=== PATIENT | female | born 1980 | race African-American/Black ===

== ENCOUNTER 2016-12-30 10:47 | Emergency (ER) | payer BC, MEDICAID ==
[~2016-12-30] VITALS: Ht 172.7 cm; Wt 89.0 kg
[~2016-12-30 10:47] MED LIST: TRAM50 PO
[2016-12-30 10:50] VITALS: BP 182/104; PULSE 79; RESP 17; TEMP 98; O2SAT 98
[2016-12-30] MEDS ORDERED: NITROGLYCERIN 0.4 MG SL 25 TABS/BTL SL ONE (11:15)
[2016-12-30] MEDS ORDERED: ASPIRIN 81 MG CHEW TAB PO ONE (11:15)
[2016-12-30] MEDS ORDERED: PROCHLORPERAZINE INJ 10 MG/2 ML VIAL IV PUSH ONE (11:15)
[2016-12-30] MEDS ORDERED: MORPHINE SULFATE 4 MG/ML INJ IV PUSH ONE (11:15)
[2016-12-30] MEDS ORDERED: SODIUM CHLORIDE 0.9% FLUSH 10 ML FLUSH IVF PRN (11:15)
[2016-12-30] MEDS ORDERED: diphenhydrAMINE HCL 50 MG/ML VIAL IV PUSH ONE (11:15)
[2016-12-30] MEDS ORDERED: SODIUM CHLORID 0.9% 500 ML INJ 500 ML IV ONE (11:15)
--- NOTE | 2016-12-30 11:19 | PD ---
HPI Chief Complaint: Chest Pain Time Seen by Provider: 10:55 Travel History International Travel<30 days: No Contact w/Intl Traveler<30days: No Traveled to known affect area: No History of Present Illness HPI The patient is a 36-year-old [place] female who presents emergency department for headache and chest pain. The patient has a history of migraines with previous workup performed in [facility]. The patient developed a migraine 4 days ago which is located over the right aspect of her head and is associated with mild photophobia, blurry vision, phonophobia, nausea, without any vomiting. Earlier today the patient developed substernal chest pain described as heaviness and pressure, nonradiating, CO2 mild shortness of breath. The patient denies any diaphoresis or radiation of the pain. The patient denies any history of hypertension, hyperlipidemia, tobacco use, diabetes, CAD, early significant family medical history for chest pain. She denies any recent exertional shortness of breath. Symptoms are moderate without any alleviating or exacerbating factors. PFSH Past Medical History ?: Not LMP: 12/30/16 Social History Alcohol Use: No Tobacco Use: No Substance Use: No Allergies-Medications (Allergen,Severity, Reaction): Coded Allergies: No Known Allergies (Unverified , 12/30/16) Reported Meds & Prescriptions Reported Meds & Active Scripts Active No Active Prescriptions or Reported Medications Review of Systems Except as stated in HPI: all other systems reviewed are Neg General / Constitutional: No: Fever HENT: Positive: Headaches Cardiovascular: Positive: Chest Pain or Discomfort, No: Diaphoresis Respiratory: Positive: Shortness of Breath Gastrointestinal: Positive: Nausea, No: Vomiting, Abdominal Pain Neurologic: Positive: Headache, No: Change in Mentation Physical Exam Narrative GENERAL: Awake, alert, pleasant 36-year-old female who appears her stated age and is in no acute respiratory distress. SKIN: Focused skin assessment warm/dry. HEAD: Atraumatic. Normocephalic. EYES: Pupils equal and round. 4 mm bilateral and reactive. ENT: No nasal bleeding or discharge. Mucous membranes pink and moist. NECK: Trachea midline. No JVD. CARDIOVASCULAR: Regular rate and rhythm. No murmur appreciated. Palpation the chest wall does not reproduce symptoms. RESPIRATORY: No accessory muscle use. Clear to auscultation. Breath sounds equal bilaterally. GASTROINTESTINAL: Abdomen soft, non-tender, nondistended. No rebound tenderness. MUSCULOSKELETAL: No obvious deformities. No clubbing. No cyanosis. No edema. NEUROLOGICAL: Awake and alert. No obvious cranial nerve deficits. Motor grossly within normal limits. Normal speech. Nonfocal. Oriented 4. Follows commands without difficulty. PSYCHIATRIC: Appropriate mood and affect; insight and judgment normal. Data Data Last Documented VS Vital Signs Date Time Temp Pulse Resp B/P Pulse Ox O2 Delivery O2 Flow Rate FiO2 12/30/16 11:40 57 15 170/106 98 Room Air 12/30/16 10:50 98.0 Orders Electrocardiogram (12/30/16 11:08) Ckmb (Isoenzyme) Profile (12/30/16 11:08) Complete Blood Count With Diff (12/30/16 11:08) Comprehensive Metabolic Panel (12/30/16 11:08) Magnesium (Mg) (12/30/16 11:08) Prothrombin Time / Inr (Pt) (12/30/16 11:08) Act Partial Throm Time (Ptt) (12/30/16 11:08) Troponin I (12/30/16 11:08) Chest, Single Ap (12/30/16 11:08) Ecg Monitoring (12/30/16 11:08) Bilateral Bp Monitoring (12/30/16 11:08) Iv Access Insert/Monitor (12/30/16 11:08) Oximetry (12/30/16 11:08) Oxygen Administration (12/30/16 11:08) Aspirin Chew (Aspirin Chew) (12/30/16 11:15) Morphine Inj (Morphine Inj) (12/30/16 11:15) Sodium Chloride 0.9% Flush (Ns Flush) (12/30/16 11:15) Nitroglycerin Sl (Nitrostat Sl) (12/30/16 11:15) Sodium Chlorid 0.9% 500 Ml Inj (Ns 500 M (12/30/16 11:15) Prochlorperazine Inj (Compazine Inj) (12/30/16 11:15) Diphenhydramine Inj (Benadryl Inj) (12/30/16 11:15) CKMB (12/30/16 11:15) CKMB% (12/30/16 11:15) Labs Laboratory Tests Test 12/30/16 11:15 White Blood Count 7.7 TH/MM3 Red Blood Count 4.94 MIL/MM3 Hemoglobin 13.5 GM/DL Hematocrit 41.6 % Mean Corpuscular Volume 84.4 FL Mean Corpuscular Hemoglobin 27.5 PG Mean Corpuscular Hemoglobin 32.5 % Concent Red Cell Distribution Width 12.6 % Platelet Count 276 TH/MM3 Mean Platelet Volume 8.1 FL Neutrophils (%) (Auto) 64.1 % Lymphocytes (%) (Auto) 29.1 % Monocytes (%) (Auto) 5.4 % Eosinophils (%) (Auto) 1.1 % Basophils (%) (Auto) 0.3 % Neutrophils # (Auto) 4.9 TH/MM3 Lymphocytes # (Auto) 2.2 TH/MM3 Monocytes # (Auto) 0.4 TH/MM3 Eosinophils # (Auto) 0.1 TH/MM3 Basophils # (Auto) 0.0 TH/MM3 CBC Comment DIFF FINAL Differential Comment Prothrombin Time 10.9 SEC Prothromb Time International 1.0 RATIO Ratio Activated Partial 27.8 SEC Thromboplast Time Sodium Level 141 MEQ/L Potassium Level 3.4 MEQ/L Chloride Level 109 MEQ/L Carbon Dioxide Level 23.6 MEQ/L Anion Gap 8 MEQ/L Blood Urea Nitrogen 5 MG/DL Creatinine 0.65 MG/DL Estimat Glomerular Filtration 124 ML/MIN Rate Random Glucose 87 MG/DL Calcium Level 8.4 MG/DL Magnesium Level 2.0 MG/DL Total Bilirubin 0.4 MG/DL Aspartate Amino Transf 21 U/L (AST/SGOT) Alanine Aminotransferase 32 U/L (ALT/SGPT) Alkaline Phosphatase 90 U/L Total Creatine Kinase 170 U/L Creatine Kinase MB 0.7 NG/ML Troponin I LESS THAN 0.02 NG/ML Total Protein 7.8 GM/DL Albumin 4.0 GM/DL MDM Medical Decision Making Medical Screen Exam Complete: Yes Emergency Medical Condition: Yes Medical Record Reviewed: Yes Interpretation(s) EKG reveals normal sinus rhythm with a rate of 65. No ischemic changes noted. Laboratory Tests Test 12/30/16 11:15 White Blood Count 7.7 TH/MM3 Red Blood Count 4.94 MIL/MM3 Hemoglobin 13.5 GM/DL Hematocrit 41.6 % Mean Corpuscular Volume 84.4 FL Mean Corpuscular Hemoglobin 27.5 PG Mean Corpuscular Hemoglobin 32.5 % Concent Red Cell Distribution Width 12.6 % Platelet Count 276 TH/MM3 Mean Platelet Volume 8.1 FL Neutrophils (%) (Auto) 64.1 % Lymphocytes (%) (Auto) 29.1 % Monocytes (%) (Auto) 5.4 % Eosinophils (%) (Auto) 1.1 % Basophils (%) (Auto) 0.3 % Neutrophils # (Auto) 4.9 TH/MM3 Lymphocytes # (Auto) 2.2 TH/MM3 Monocytes # (Auto) 0.4 TH/MM3 Eosinophils # (Auto) 0.1 TH/MM3 Basophils # (Auto) 0.0 TH/MM3 CBC Comment DIFF FINAL Differential Comment Prothrombin Time 10.9 SEC Prothromb Time International 1.0 RATIO Ratio Activated Partial 27.8 SEC Thromboplast Time Sodium Level 141 MEQ/L Potassium Level 3.4 MEQ/L Chloride Level 109 MEQ/L Carbon Dioxide Level 23.6 MEQ/L Anion Gap 8 MEQ/L Blood Urea Nitrogen 5 MG/DL Creatinine 0.65 MG/DL Estimat Glomerular Filtration 124 ML/MIN Rate Random Glucose 87 MG/DL Calcium Level 8.4 MG/DL Magnesium Level 2.0 MG/DL Total Bilirubin 0.4 MG/DL Aspartate Amino Transf 21 U/L (AST/SGOT) Alanine Aminotransferase 32 U/L (ALT/SGPT) Alkaline Phosphatase 90 U/L Total Creatine Kinase 170 U/L Creatine Kinase MB 0.7 NG/ML Troponin I LESS THAN 0.02 NG/ML Total Protein 7.8 GM/DL Albumin 4.0 GM/DL Last Impressions Chest X-Ray 12/30/16 1108 Signed Impressions: Service Date/Time: Friday, December 30, 2016 11:05 - CONCLUSION: No acute disease. Jude Murillo MD FACR Differential Diagnosis Differential diagnosis includes migraine, tension headache, glaucoma, acute coronary syndrome, GERD, esophageal spasm, somatization, pulmonary embolism, gastritis, peptic ulcer disease, pancreatitis. Narrative Course IV was established, labs are drawn and sent, and the patient was placed on cardiac telemetry monitoring and continuous pulse oximetry monitoring. EKG was ordered and interpreted. The patient was administered aspirin, morphine, Compazine, Benadryl, and IV fluids. Chest x-ray was obtained. Chest x-rays unremarkable. The patient's initial troponin is negative. The patient has atypical symptoms with no obvious risk factors. The patient was reevaluated at 12:55 PM, her headache has resolved and so has her chest pain. The patient has no risk factors atypical symptoms that started after the headache, may be secondary to elevated blood pressure migraine. The patient will be discharged home when she has a safe ride and disposition home. Diagnosis Primary Impression: Migraine Qualified Code: G43.909 - Migraine without status migrainosus, not intractable , unspecified migraine type Additional Impression: Atypical chest pain Patient Instructions: General Instructions Additional Instructions: Follow-up with your primary physician. Return if symptoms worsen or progress. No driving for 6 hours. Med/Other Pt SpecificInfo: Prescription(s) given Scripts Patoasatyx-Rrohqcsqeoadg-Emquozoj (Fioricet)50-300-40 Mg Cap1 Cap PO Q4H PRN ( HEADACHE) #12 CAP Ref 0 Prov:Zaheer Vaughn MD 12/30/16 Disposition: 01 DISCHARGE HOME Condition: Stable Zaheer Vaughn MD December 30, 2016 11:19
--- NOTE | 2016-12-30 11:23 | RADRPT ---
EXAM DATE/TIME: 12/30/2016 11:05 [facility] COMPARISON: No previous studies available for comparison. INDICATIONS : Patient states chest pains. MEDICAL HISTORY : None. SURGICAL HISTORY : None. ENCOUNTER: Initial ACUITY: 1 day PAIN SCORE: 4/10 LOCATION: Bilateral chest FINDINGS: A single view of the chest demonstrates the lungs to be symmetrically aerated without evidence of mas s, infiltrate or effusion. The cardiomediastinal contours are unremarkable. Osseous structures are intact. CONCLUSION: No acute disease. Jude Murillo MD FACR on December 30, 2016 at 11:21 Board Certified Radiologist. This report was verified electronically.
[2016-12-30 11:33] VITALS: O2SAT 100
[2016-12-30 11:36] LABS: AUTOMATED NEUTROPHIL # 4.9 TH/MM3 (1.8-7.7); BASOPHIL % 0.3 % (0.0-2.0); EOSINOPHIL # 0.1 TH/MM3 (0-0.4); EOSINOPHIL % 1.1 % (0.0-4.0); HEMATOCRIT 41.6 % (35.0-46.0); HEMO FLAGS DIFF FINAL; LYMPH % 29.1 % (9.0-44.0); LYMPHOCYTE # 2.2 TH/MM3 (1.0-4.8); MEAN CELL VOLUME 84.4 FL (80.0-100.0); MEAN CORPUSCULAR HEMOGLOBIN 27.5 PG (27.0-34.0); MEAN CORPUSCULAR HGB CONC 32.5 % (32.0-36.0); MONO % 5.4 % (0.0-8.0); NEUT % 64.1 % (16.0-70.0); PLATELET COUNT 276 TH/MM3 (150-450); RED BLOOD COUNT 4.94 MIL/MM3 (4.00-5.30); RED CELL DISTRIBUTION WIDTH 12.6 % (11.6-17.2); WHITE BLOOD COUNT 7.7 TH/MM3 (4.0-11.0)
[2016-12-30 11:40] VITALS: BP 170/106; PULSE 57; RESP 15; O2SAT 98
[2016-12-30 11:49] LABS: APTT (PATIENT) 27.8 SEC (24.3-30.1); PROTHROMBIN TIME - PATIENT 10.9 SEC (9.8-11.6)
[2016-12-30 11:58] LABS: ALT (GPT) 32 U/L (10-53); ANION GAP 8 MEQ/L (5-15); AST (GOT) 21 U/L (15-37); BICARBONATE 23.6 MEQ/L (21.0-32.0); BLOOD UREA NITROGEN 5 MG/DL (7-18); CHLORIDE 109 MEQ/L (98-107); GLOMERULAR FILTRATION RATE 124 ML/MIN (>89); POTASSIUM 3.4 MEQ/L (3.5-5.1); SODIUM (NA) 141 MEQ/L (136-145)
[2016-12-30 12:02] LABS: ALKALINE PHOSPHATASE 90 U/L (45-117); CREATINE KINASE 170 U/L (26-192); TOTAL BILIRUBIN ADULT 0.4 MG/DL (0.2-1.0)
[2016-12-30 12:15] LABS: CKMB 0.7 NG/ML (0.5-3.6)
[2016-12-30] MEDS ORDERED: BUTA1CAP PO (12:58)
--- NOTE | 2016-12-31 15:24 | EKG ---
Date Performed: 12/30/2016 Time Performed: 11:02:52 PTAGE: 36 years EKG: Sinus rhythm MINIMAL VOLTAGE CRITERIA FOR LVH, CONSIDER NORMAL VARIANT BORDERLINE ECG NO PREVIOUS TRACING DOCTOR: Mary Da Silva Interpretating Date/Time 12/31/2016 15:23:06
== END 2016-12-30 13:51 | disposition home or self-care (01) ==
LOC: NEPE 10:47
DX: G43.909 Migraine, unspecified, not intractable, without status migrainosus (principal); R07.89 Other chest pain; R94.31 Abnormal electrocardiogram [ECG] [EKG]
CPT/HCPCS: 71010; 80053; 82550; 82552; 83735; 84484; 85025; 85610; 85730; 93005; 96361; 96374; 96375; 99285; J0780; J1200; J2270; J7040

== ENCOUNTER 2017-12-10 20:22 | Emergency (ER) | payer MEDICAID ==
[~2017-12-10] VITALS: Ht 172.7 cm; Wt 97.5 kg
[~2017-12-10 20:22] MED LIST changes: +BUTA1CAP PO; -TRAM50 PO
[2017-12-10 21:10] VITALS: BP 176/84; PULSE 79; RESP 18; TEMP 98.9; O2SAT 99
[2017-12-10] MEDS ORDERED: diphenhydrAMINE HCL 50 MG/ML VIAL IV PUSH ONE (22:30)
[2017-12-10] MEDS ORDERED: KETOROLAC TROMETHAMINE 30 MG/ML (IVP) VIAL IV PUSH ONE (22:30)
[2017-12-10] MEDS ORDERED: PROCHLORPERAZINE INJ 10 MG/2 ML VIAL IV PUSH ONE (22:30)
--- NOTE | 2017-12-10 22:38 | PD ---
HPI Chief Complaint: Headache Time Seen by Provider: 22:25 Travel History International Travel<30 days: No Contact w/Intl Traveler<30days: No Traveled to known affect area: No History of Present Illness HPI 37-year-old black female presents emergency department with months of migraine headache. She states that this is a typical migraine headache for her. Started off on the right side of her head but now is all across her forehead. Started yesterday gradual onset. Sharp and throbbing in nature. Associated nausea, photophobia and general malaise. She has taken [id number]-[id number] medications without relief. She denies any recent illness. No fever chills. No numbness, tingling or weakness. No neck or back pain. Exacerbated by movement and lites. No alleviating factors. She states the pain is moderate. Patient has had a workup in the past. She was treated earlier this past year for migraine headache in the ER. PFSH Past Medical History Narrative Medical Migraines Headaches: Yes Tetanus Vaccination: < 5 Years ?: Not LMP: 11/27/2017 Past Surgical History Narrative Surgical C-sections Gynecologic Surgery: Yes () Social History Alcohol Use: No Tobacco Use: No Substance Use: No Allergies-Medications (Allergen,Severity, Reaction): Coded Allergies: No Known Allergies (Unverified Adverse Reaction, Unknown, 12/10/17) Reported Meds & Prescriptions Reported Meds & Active Scripts Active Review of Systems General / Constitutional: No: Fever Eyes: Positive: Photophobia, No: Diploplia, Blurred Vision, Redness, Visual changes HENT: Positive: Headaches Cardiovascular: No: Chest Pain or Discomfort Respiratory: No: Shortness of Breath Gastrointestinal: Positive: Nausea, Vomiting, No: Abdominal Pain Genitourinary: No: Dysuria Musculoskeletal: No: Pain Skin: No Rash Neurologic: Positive: Headache, No: Weakness, Dizziness, Syncope, Focal Abnormalities, Change in Mentation, Slurred Speech, Paresthesia, Incontinence Psychiatric: No: Depression Endocrine: No: Polydipsia Hematologic/Lymphatic: No: Easy Bruising Physical Exam Narrative GENERAL: Well-developed, well-nourished in no apparent distress. Nontoxic appearing. HEAD: Normocephalic, atraumatic. EYES: Pupils equal round and reactive. Extraocular motions intact. No scleral icterus. No injection or drainage. ENT: Nose clear. Throat without erythema, tonsillar hypertrophy or exudate. Uvula midline. Airway patent. NECK: Trachea midline. Supple, nontender, moves head freely. No central bony tenderness or spasm. CARDIOVASCULAR: Regular rate and rhythm without murmurs, gallops, or rubs. RESPIRATORY: Clear to auscultation. Breath sounds equal bilaterally. No wheezes , rales, or rhonchi. GASTROINTESTINAL: Abdomen soft, non-tender, nondistended. No hepato-splenomegaly , or palpable masses. No guarding. EXTREMITIES: No clubbing, cyanosis, or edema. No joint tenderness. BACK: Nontender without deformity. No flank tenderness. NEUROLOGICAL: Awake, alert and oriented x 3 .Cranial nerves grossly intact. Motor and sensory grossly within normal limits. Normal speech. Data Data Last Documented VS Vital Signs Date Time Temp Pulse Resp B/P (MAP) Pulse Ox O2 Delivery O2 Flow Rate FiO2 12/10/17 21:10 98.9 79 18 176/84 (114) 99 Orders Orders Iv Access Insert/Monitor (12/10/17 22:29) Diphenhydramine Inj (Benadryl Inj) (12/10/17 22:30) Prochlorperazine Inj (Compazine Inj) (12/10/17 22:30) Ketorolac Inj (Toradol Inj) (12/10/17 22:30) MDM Medical Decision Making Medical Screen Exam Complete: Yes Emergency Medical Condition: Yes Medical Record Reviewed: Yes Differential Diagnosis MDM: High Differential diagnoses: Subarachnoid hemorrhage, intracranial bleed, aneurysm, pseudotumor, migraine, cluster headache, atypical migraine, temporal arteritis, connective tissue disorder, hypertension, temporal arteritis, sinusitis, sinus headache,malingering Narrative Course IV access is obtained. Patient was given 50 mg of Benadryl IV, Compazine 10 mg IV, and 50 mg of Toradol IV. The patient is reexamined. She is sleeping examination room. She is awoken. She states her headache is completely resolved. Patient is medically stable for discharge. This is migraine headache Diagnosis Primary Impression: Migraine headache Patient Instructions: General Instructions Departure Forms: Tests/Procedures, Work Release Special Instructions: No work 12/11/17 Additional Instructions: Rest. Sleep. Increase fluids. Follow-up with your doctor in next 3-5 days for recheck. Return to the ER if any problems. Med/Other Pt SpecificInfo: No Meds Exist/No RX given Disposition: 01 DISCHARGE HOME Condition: Stable Paul Min Dec 10, 2017 22:38
== END 2017-12-10 23:54 | disposition home or self-care (01) ==
LOC: NEPD 20:22
DX: G43.909 Migraine, unspecified, not intractable, without status migrainosus (principal)
CPT/HCPCS: 96374; 96375; 99284; J0780; J1200; J1885

== ENCOUNTER 2018-04-20 19:37 | Observation (INO) ==
[2018-04-20] MEDS ORDERED: Acetaminophen 325 MG Tablet PO ONE (20:23)
[2018-04-20] MEDS ORDERED: Sod Chloride 0.9% Inj 1,000 ML IV.SIG ONE (20:23)
[2018-04-20 20:58] LABS: Albumin 3.9 g/dL (3.4-5.0); Anion Gap 10 meq/L (5-15); Aspartate Aminotransferase 41 U/L (15-37); Blood Urea Nitrogen 6 mg/dL (7-18); Calcium 8.1 mg/dL (8.5-10.1); Carbon Dioxide 24.1 meq/L (21.0-32.0); Chloride 105 meq/L (98-107); Glomerular Filtration Rate 87 mL/min (>89); Glucose,Random 87 mg/dL (74-106); Lipase 111 U/L (73-393); Magnesium 1.9 mg/dL (1.5-2.5); Potassium 3.2 meq/L (3.5-5.1); Sodium 139 meq/L (136-145)
[2018-04-20 20:59] LABS: Alanine Aminotransferase 66 U/L (10-53); Baso % (Auto) 0.4 % (0.0-2.0); Eos # (Auto) 0.1 th/mm3 (0.0-0.4); Eos % (Auto) 1.7 % (0.0-4.0); Hematocrit 38.7 % (35.0-46.0); Hemoglobin 13.3 gm/dL (11.6-15.3); Lymph # (Auto) 1.8 th/mm3 (1.0-4.8); Lymph % (Auto) 32.2 % (9.0-44.0); Mean Corpuscular HGB Conc 34.3 % (32.0-36.0); Mean Corpuscular Hemoglobin 28.4 pg (27.0-34.0); Mean Corpuscular Volume 82.7 fL (80.0-100.0); Mean Platelet Volume 7.8 fL (7.0-11.0); Mono # (Auto) 0.5 th/mm3 (0.0-0.9); Mono % (Auto) 9.4 % (0.0-8.0); Neut # (Auto) 3.2 th/mm3 (1.8-7.7); Neut % (Auto) 56.3 % (16.0-70.0); Platelet Count 198 th/mm3 (150-450); Red Blood Count 4.68 mil/mm3 (4.00-5.30); Red Cell Distribution Width 13.4 % (11.6-17.2); White Blood Count 5.7 th/mm3 (4.0-11.0)
--- NOTE | 2018-04-20 21:01 | ED ---
[facility] General Chief complaint: Chest Pain Stated complaint: Chest pain Time Seen by Provider: 04/20/18 20:18 Source: patient Limitations: no limitations History of Present Illness HPI narrative: The patient is a 37 year old female who presents to the [facility] emergency department with a history of chest pain that she reports began prior to arrival when she was walking from her car into her house. She reports that it lasted for approximately 20 minutes. She reports the pain was initially sharp in character. She reports that now that the pain has recurred it is a pressure sensation in the center of her chest. She reports having associated shortness of breath. She denies having any nausea or vomiting. She denies having any radiation of the pain. She reports that initially she did have tingling sensations in her hands and feet that have resolved. She denies having any diaphoresis. She denies having any known recent fevers, however on arrival her temperature is noted to be 102.7. She denies having any recent cough or congestion. She denies having any dysuria, hematuria, urinary urgency , or frequency. She denies having any rashes or sore throat. She denies having any joint swelling or redness. Otherwise on review of systems,the patient denies having any neck pain,abdominal pain, diarrhea, or neurologic symptoms. Related Data Home Medications Medication Instructions Recorded Confirmed No Known Home Medications 04/21/18 04/21/18 Allergies Allergy/AdvReac Type Severity Reaction Status Date / Time No Known Allergies AdvReac Unknown Uncoded 12/10/17 22:29 Review of Systems ROS: all other systems reviewed are negative (Except for that which was mentioned in the HPI) [facility], [facility] Medical History Medical History Hypertension (Acute) Social History Social History Substance History: No History of Abuse Second Hand Smoke Exposure: No Smoking Status: Never smoker How Often Do You Have a Drink Containing Alcohol: Never Recent Travel in [facility] within the Last 8 Weeks: No Recent Out of Country Travel within the Last 8 Weeks: No Immunization History Tetanus Immunization: Unsure Hx Influenza Vaccine This Season: No Exam Const General: cooperative, no acute distress and well developed Nutritional Appearance: well nourished Orientation: alert, awake and oriented x3 HENMT Head: normocephalic and atraumatic Nose: no nasal discharge and no epistaxis Mouth: moist mucous membranes Throat: posterior oropharynx normal and uvula midline Eyes Sclera: normal sclerae Pupils: PERRL Neck Neck: no meningeal signs, trachea midline and no JVD Resp Effort & Inspection: no use of accessory muscles Auscultation: clear to auscultation bilaterally Cardio Rate: regular rate Rhythm: regular rhythm Heart Sounds: no murmurs GI Inspection: non-distended Palpation: soft, no hepatosplenomegaly and nontender Auscultation: normal bowel sounds Back/Spine/Pelvis Back: no CVA tenderness Skin General: dry skin (warm) Neuro General: alert, awake and oriented x3 Cranial Nerves: other (Grossly non-focal. No facial assymetry.) Speech: speech normal Motor: no movement abnormalities noted Extrem General: normal to inspection (No calf tenderness on palpation. 2+ pulses in all 4 extremities.), no clubbing, no cyanosis and no edema Psych Mood: congruent mood Affect: normal affect Judgment: judgment good Course Initial Documented Vital Signs Temperature 102.7 F H 04/20/18 20:09 Pulse Rate 83 04/20/18 20:09 Respiratory Rate 16 04/20/18 20:09 Blood Pressure 138/79 04/20/18 20:09 Pulse Oximetry 98 04/20/18 20:09 Last Documented Vital Signs Temperature 99.1 F 04/21/18 12:00 Pulse Rate 64 04/21/18 12:00 Respiratory Rate 16 04/21/18 12:00 Blood Pressure 132/86 04/21/18 12:00 Pulse Oximetry 98 04/21/18 12:00 Medical Decision Making MDM Narrative Medical decision making narrative: During the course of the patient's emergency department visit, the patient's history, examination, and differential diagnosis were reviewed with the patient. 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 The patient had IV access obtained and blood work sent for analysis. Diagnostic evaluation was started regarding the patient's chest pain The patient's diagnostic evaluation is remarkable for a white count of 8.5, neutrophil percent is within normal limits at 56.3, monocytosis at 9.4 suggestive of a viral illness, hemoglobin 13.3, PT 11.2, PTT 26.8, d-dimer is elevated at 1.37, CTA to rule out PE has been ordered. Chemistry is remarkable for a troponin I of less than 0.02, potassium 3.2 which will be supplemented orally, GFR of 87, calcium 8.1,BUN 6, AST 41, alk phos 131, ALT 66 urinalysis shows few mucus otherwise unremarkable. The patient's chest x-ray showed no acute cardiopulmonary disease, CTA showed no pulmonary embolus or other acute abnormality. The patient's results were discussed with the patient, including the plan of care. I explained that further testing and/ or monitoring is indicated based on the patient's history, examination, and/ or laboratory findings. Therefore, I recommended admission for additional evaluation. The patient expressed understanding and was agreeable with this plan. The patient was admitted to the hospital in stable condition and sent to a bed under the care of the [facility]. Medical Screen Exam Complete: Yes Emergency Medical Condition: Yes Differential Diagnosis Differential Diagnosis: Acute coronary syndrome, versus pulmonary embolism, versus pneumonia, versus pneumothorax Medical Records Medical records reviewed: Yes I reviewed the patient's medical records. Lab Data Lab results reviewed: Yes I reviewed the patient's lab results. Result diagrams: 04/20/18 20:30 04/20/18 20:30 POC Results POC Urine Results Negative Lab Results 04/20/18 04/20/18 04/20/18 Range/Units 20:30 20:30 20:30 WBC 5.7 (4.0-11.0) th/mm3 RBC 4.68 (4.00-5.30) mil/mm3 Hgb 13.3 (11.6-15.3) gm/dL Hct 38.7 (35.0-46.0) % MCV 82.7 (80.0-100.0) fL MCH 28.4 (27.0-34.0) pg MCHC 34.3 (32.0-36.0) % RDW 13.4 (11.6-17.2) % Plt Count 198 (150-450) th/mm3 MPV 7.8 (7.0-11.0) fL Neut % (Auto) 56.3 (16.0-70.0) % Lymph % (Auto) 32.2 (9.0-44.0) % Lewis % (Auto) 9.4 H (0.0-8.0) % Eos % (Auto) 1.7 (0.0-4.0) % Baso % (Auto) 0.4 (0.0-2.0) % Neut # (Auto) 3.2 (1.8-7.7) th/mm3 Lymph # (Auto) 1.8 (1.0-4.8) th/mm3 Lewis # (Auto) 0.5 (0.0-0.9) th/mm3 Eos # (Auto) 0.1 (0.0-0.4) th/mm3 Baso # (Auto) 0.0 (0.0-0.2) th/mm3 WBC Differential . Differential Comment Auto diff final PT 11.2 (9.8-11.6) sec INR 1.1 Ratio APTT 26.8 (24.3-30.1) sec D-Dimer Quant (PE/DVT) 1.37 H (0.00-0.50) mg/L FEU Sodium 139 (136-145) meq/L Potassium 3.2 L (3.5-5.1) meq/L Chloride 105 (98-107) meq/L Carbon Dioxide 24.1 (21.0-32.0) meq/L Anion Gap 10 (5-15) meq/L BUN 6 L (7-18) mg/dL Creatinine 0.88 (0.50-1.00) mg/dL Estimated GFR 87 L (>89) mL/min Random Glucose 87 (74-106) mg/dL Lactic Acid (0.4-2.0) mmol/L Calcium 8.1 L (8.5-10.1) mg/dL Magnesium 1.9 (1.5-2.5) mg/dL Total Bilirubin 0.4 (0.2-1.0) mg/dL AST 41 H (15-37) U/L ALT 66 H (10-53) U/L Alkaline Phosphatase 131 H (45-117) U/L Total Creatine Kinase 151 (26-192) U/L CK-MB (CK-2) Less than 1.0 (0.5-3.6) ng/mL Troponin I Less than 0.02 L (0.02-0.05) ng/mL Total Protein 8.2 (6.4-8.2) g/dL Albumin 3.9 (3.4-5.0) g/dL Lipase 111 (73-393) U/L Urine Color (Yellw/Straw) Urine Clarity (Clear) Urine pH (5.0-8.5) Ur Specific [place] (1.002-1.035) Urine Protein (Neg-Trace) mg/dL Urine Glucose (UA) (Negative) mg/dL Urine Ketones (Negative) mg/dL Urine Occult Blood (Negative) Urine Nitrate (Negative) Urine Bilirubin (Negative) Urine Urobilinogen (Less than 2) mg/dL Ur Leukocyte Esterase (Negative) Urine RBC (0-3) /hpf Urine WBC (0-5) /hpf Ur Squamous Epith Cells (0-5) /hpf Urine Mucus (Occasional) /lpf Micro UA Comment Ur Microscopic Review Urine Culture Comments 04/20/18 04/20/18 04/20/18 Range/Units 20:30 20:30 21:35 WBC (4.0-11.0) th/mm3 RBC (4.00-5.30) mil/mm3 Hgb (11.6-15.3) gm/dL Hct (35.0-46.0) % MCV (80.0-100.0) fL MCH (27.0-34.0) pg MCHC (32.0-36.0) % RDW (11.6-17.2) % Plt Count (150-450) th/mm3 MPV (7.0-11.0) fL Neut % (Auto) (16.0-70.0) % Lymph % (Auto) (9.0-44.0) % Lewis % (Auto) (0.0-8.0) % Eos % (Auto) (0.0-4.0) % Baso % (Auto) (0.0-2.0) % Neut # (Auto) (1.8-7.7) th/mm3 Lymph # (Auto) (1.0-4.8) th/mm3 Lewis # (Auto) (0.0-0.9) th/mm3 Eos # (Auto) (0.0-0.4) th/mm3 Baso # (Auto) (0.0-0.2) th/mm3 WBC Differential Differential Comment PT (9.8-11.6) sec INR Ratio APTT (24.3-30.1) sec D-Dimer Quant (PE/DVT) Cancelled (0.00-0.50) mg/L FEU Sodium (136-145) meq/L Potassium (3.5-5.1) meq/L Chloride (98-107) meq/L Carbon Dioxide (21.0-32.0) meq/L Anion Gap (5-15) meq/L BUN (7-18) mg/dL Creatinine (0.50-1.00) mg/dL Estimated GFR (>89) mL/min Random Glucose (74-106) mg/dL Lactic Acid 0.9 (0.4-2.0) mmol/L Calcium (8.5-10.1) mg/dL Magnesium (1.5-2.5) mg/dL Total Bilirubin (0.2-1.0) mg/dL AST (15-37) U/L ALT (10-53) U/L Alkaline Phosphatase (45-117) U/L Total Creatine Kinase (26-192) U/L CK-MB (CK-2) (0.5-3.6) ng/mL Troponin I (0.02-0.05) ng/mL Total Protein (6.4-8.2) g/dL Albumin (3.4-5.0) g/dL Lipase (73-393) U/L Urine Color Yellow (Yellw/Straw) Urine Clarity Clear (Clear) Urine pH 5.0 (5.0-8.5) Ur Specific [place] 1.010 (1.002-1.035) Urine Protein Negative (Neg-Trace) mg/dL Urine Glucose (UA) Negative (Negative) mg/dL Urine Ketones Negative (Negative) mg/dL Urine Occult Blood Negative (Negative) Urine Nitrate Negative (Negative) Urine Bilirubin Negative (Negative) Urine Urobilinogen Less than 2 (Less than 2) mg/dL Ur Leukocyte Esterase Negative (Negative) Urine RBC 1 (0-3) /hpf Urine WBC Less than 1 (0-5) /hpf Ur Squamous Epith Cells <1 (0-5) /hpf Urine Mucus Few H (Occasional) /lpf Micro UA Comment Culture not ind Ur Microscopic Review Not Reportable Urine Culture Comments Culture not ind 04/20/18 04/21/18 Range/Units 23:43 03:05 WBC (4.0-11.0) th/mm3 RBC (4.00-5.30) mil/mm3 Hgb (11.6-15.3) gm/dL Hct (35.0-46.0) % MCV (80.0-100.0) fL MCH (27.0-34.0) pg MCHC (32.0-36.0) % RDW (11.6-17.2) % Plt Count (150-450) th/mm3 MPV (7.0-11.0) fL Neut % (Auto) (16.0-70.0) % Lymph % (Auto) (9.0-44.0) % Lewis % (Auto) (0.0-8.0) % Eos % (Auto) (0.0-4.0) % Baso % (Auto) (0.0-2.0) % Neut # (Auto) (1.8-7.7) th/mm3 Lymph # (Auto) (1.0-4.8) th/mm3 Lewis # (Auto) (0.0-0.9) th/mm3 Eos # (Auto) (0.0-0.4) th/mm3 Baso # (Auto) (0.0-0.2) th/mm3 WBC Differential Differential Comment PT (9.8-11.6) sec INR Ratio APTT (24.3-30.1) sec D-Dimer Quant (PE/DVT) (0.00-0.50) mg/L FEU Sodium (136-145) meq/L Potassium (3.5-5.1) meq/L Chloride (98-107) meq/L Carbon Dioxide (21.0-32.0) meq/L Anion Gap (5-15) meq/L BUN (7-18) mg/dL Creatinine (0.50-1.00) mg/dL Estimated GFR (>89) mL/min Random Glucose (74-106) mg/dL Lactic Acid (0.4-2.0) mmol/L Calcium (8.5-10.1) mg/dL Magnesium (1.5-2.5) mg/dL Total Bilirubin (0.2-1.0) mg/dL AST (15-37) U/L ALT (10-53) U/L Alkaline Phosphatase (45-117) U/L Total Creatine Kinase 125 125 (26-192) U/L CK-MB (CK-2) Less than 1.0 (0.5-3.6) ng/mL Troponin I Less than 0.02 L Less than 0.02 L (0.02-0.05) ng/mL Total Protein (6.4-8.2) g/dL Albumin (3.4-5.0) g/dL Lipase (73-393) U/L Urine Color (Yellw/Straw) Urine Clarity (Clear) Urine pH (5.0-8.5) Ur Specific [place] (1.002-1.035) Urine Protein (Neg-Trace) mg/dL Urine Glucose (UA) (Negative) mg/dL Urine Ketones (Negative) mg/dL Urine Occult Blood (Negative) Urine Nitrate (Negative) Urine Bilirubin (Negative) Urine Urobilinogen (Less than 2) mg/dL Ur Leukocyte Esterase (Negative) Urine RBC (0-3) /hpf Urine WBC (0-5) /hpf Ur Squamous Epith Cells (0-5) /hpf Urine Mucus (Occasional) /lpf Micro UA Comment Ur Microscopic Review Urine Culture Comments Imaging Data Radiologist's impression: Chest X-Ray 04/20/18 20:22 CONCLUSION: No acute cardiopulmonary process. Chest CTA 04/20/18 23:34 CONCLUSION: No pulmonary embolus or other acute abnormality. Myocardial Perfusion Scan Nuc Med 04/21/18 08:09 CONCLUSION: Small size moderate severity apical perfusion abnormality. No evidence of ischemia. ECG Data Attestation: I personally reviewed and interpreted this ECG as follows: Interpretation: The patient had an EKG done on arrival. The patient's EKG shows a sinus rhythm heart rate is 82, QRS duration is 92 ms, QTC [address] segment elevation. T waves are inverted in V1. Nonspecific T-wave abnormalities are noted in V3. Discharge Plan Discharge Disposition Patient Disposition: 01 Discharge Home Discharge Condition Condition: Stable Discharge Order Discharge Orders: Discharge Order (Routine); Ordered 04/21/18 Ordered By: Cole Gallagher Discharge Details Diagnosis: Chest pain Physicians Team ED Provider: Donna Colon Primary Care Provider: Primary Care Marlin,Zaida Attending Provider: Richard Anton Discharge Interventions Interventions: ED Discharge Assessment Last Done: 04/21/18 07:45 Vital Signs Last Done: 04/21/18 05:12 Status ED Status: Left Department Discharge Information Discharge Date/Time: 04/21/18 07:46
[2018-04-20 21:03] LABS: Alkaline Phosphatase 131 U/L (45-117); Creatine Kinase 151 U/L (26-192); Total Protein 8.2 g/dL (6.4-8.2)
[2018-04-20 21:11] LABS: Activated Partial Thrombo Time 26.8 sec (24.3-30.1); D-Dimer 1.37 mg/L FEU (0.00-0.50); INR 1.1 Ratio; Prothrombin Time 11.2 sec (9.8-11.6)
--- NOTE | 2018-04-20 21:30 | XR ---
EXAM DATE: 04/20/2018 8:50 PM EDT AGE/SEX: 37 years / Female INDICATIONS: Chest pain. CLINICAL DATA: This is the patient's initial encounter. Patient reports that signs and symptoms have been present for 1 day and indicates a pain score of 4/10. MEDICAL/SURGICAL HISTORY: None. None. [place] [facility] [place]. . FINDINGS: A single AP view of the chest demonstrates the lungs to be symmetrically aerated without evidence of mass, infiltrate or effusion. The cardiomediastinal contours are unremarkable. Osseous structures a re intact. CONCLUSION: No acute cardiopulmonary process. Electronically signed by: Cordell Ross MD 04/20/2018 9:29 PM EDT
[2018-04-20 21:55] LABS: Bilirubin,Urine Negative (Negative); Clarity,Urine Clear (Clear); Color,Urine Yellow (Yellw/Straw); Glucose,Urine (UA) Negative (Negative); Leukocyte Esterase,Urine Negative (Negative); Mucus,Urine Few /lpf (Occasional); Nitrite,Urine Negative (Negative); Squamous Epithelial Cell,Urine <1 /hpf (0-5)
[2018-04-21 00:08] LABS: Creatine Kinase 125 U/L (26-192)
--- NOTE | 2018-04-21 00:22 | CT ---
EXAM DATE: 04/21/2018 12:05 AM EDT AGE/SEX: 37 years / Female INDICATIONS: Chest pain; rule out pulmonary embolus. CLINICAL DATA: This is the patient's initial encounter. Patient reports that signs and symptoms have been present for 1 day and indicates a pain score of 4/10. MEDICAL/SURGICAL HISTORY: Hypertension. None. RADIATION DOSE: 10.22 CTDI (mGy) COMPARISON: No prior exams available for comparison. TECHNIQUE: Volumetric scanning was performed using a multi-row detector CT scanner during bolus infu walter of 74 ml Omnipaque 350 (iohexol) nonionic water-soluble contrast as a single exam dose. The lucero a was post processed with a variety of visualization algorithms including full volume maximum intensi ty projection and sliding thin slab reformation. Using automated exposure control and adjustment of the mA and/or kV according to patient size, radiation dose was kept as low as reasonably achievable t o obtain optimal diagnostic quality images. DICOM format image data is available electronically for review and comparison. FINDINGS: Pulmonary Arteries: No filling defects are seen in the pulmonary arteries out to the subsegmental ve ssels. The left and right pulmonary arteries are normal in diameter. Lung: No infiltrates seen. Effusion: None. Mediastinum: No evidence of mediastinal or hilar adenopathy. Other: No axillary adenopathy. CONCLUSION: No pulmonary embolus or other acute abnormality. Electronically signed by: Cordell Salmon MD 04/21/2018 12:21 AM EDT
[2018-04-21] MEDS ORDERED: Acetaminophen 500 MG Tablet PO PRN (01:33)
[2018-04-21] MEDS ORDERED: Sod Chloride 0.9% Inj 1,000 ML IV.CONT SCH (01:45)
[2018-04-21 03:40] LABS: Creatine Kinase 125 U/L (26-192)
[2018-04-21 07:56] VITALS: RESP 16
[2018-04-21] MEDS ORDERED: Regadenoson Inj 0.4 MG/5 ML Syringe IV.PUSH ONE (11:02)
--- NOTE | 2018-04-21 12:12 | NM ---
EXAM DATE: 04/21/2018 12:01 PM EDT AGE/SEX: 37 years / Female INDICATIONS:Angina. . Sub-sternal chest pain with dyspnea. CLINICAL DATA: This is the patient's initial encounter. Patient reports that signs and symptoms have been present for 1 day and indicates a pain score of 8/10. MEDICAL/SURGICAL HISTORY: Hypertension. None. COMPARISON: [facility], CTA PULMONARY W CONTRAST W 3D, 04/20/2018. . DOSE: 8.5 mCi Tc 99m Myoview at rest 27.2 mCi [id number] at stress 0.4 mg Lexiscan STRESS SYMPTOMS: Dyspnea and chest pressure. EJECTION FRACTION: 52 % TECHNIQUE: The patient underwent pharmacologic stress with infusion of prescribed dose. Continuous ECG tracing was monitored during stress. Gated SPECT imaging was performed after stress and conventi onal SPECT imaging was performed at rest. The examination was performed on a SPECT/CT scanner, both attenuation and non-corrected datasets were reviewed. FINDINGS: Distribution: The maximum perfused segment at stress is in the posterior basal wall. Perfusion Study: There is a small area of mildly to moderately diminished perfusion involving the c ardiac apex with no evidence of redistribution. Gated Study: Slight LV chamber dilatation. There are intact wall motion and wall thickening without hypokinetic or dyskinetic segments. The ejection fraction is calculated at 52%. RISK CATEGORY: Low (<1% Annual Motality Rate) CONCLUSION: Small size moderate severity apical perfusion abnormality. No evidence of ischemia. Electronically signed by: Cordell Ramirez MD 04/21/2018 12:10 PM EDT
--- NOTE | 2018-04-21 12:27 | P.HPCA ---
History of Present Illness Primary Care Physician: No Primary Care Physician Chief Complaint: Chest pain History of Present Illness: This is a 37-year-old female the presents to ED to be evaluated for shortness of breath and chest discomfort that began yesterday while she is walking from her car to her house to the couch. She also had some numbness in her left arm. Symptoms lasted about 20 minutes. EVAC was summoned and brought her to the ED. Denied recent illness however patient was observed in the ED to have a temperature initially of 102.7. Denies cold symptoms. Denies earache or sore throat. Denies UTI symptoms. Denies any rashes or other etiology that could cause fever. States she did not know she had a fever until they told her in the ED. 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 Denies . Denies history of hypertension, hyperlipidemia, diabetes, and CAD. She is a non-smoker. Denies family history of CAD. - Diagnosis (1) Chest pain (2) Febrile (3) Hypokalemia Review of Systems General: She was unaware that she had a fever until being told in the ED that she had a temperature 1 2.7. But prior to that she would have stated that she had no fever or chills. No recent travel. HEENT: Patient denies headache, sore throat, difficulty swallowing. Cardiovascular: Has the chest discomfort as mentioned above. Denies sensation of heart beating rapidly or irregularly. No syncope. Denies diaphoresis. Respiratory: Denies shortness of breath or inspirational chest discomfort. Denies coughing wheezing or hemoptysis. GI: Patient denies nausea, vomiting, diarrhea, abdominal pain, bloody stools. Musculoskeletal: Patient denies joint pain or edema. Denies calf pain or edema. Neurovascular: Patient denies numbness, tingling, weakness in extremities. Denies headache. Endocrine: Denies polyuria and polydipsia. Hematologic: Denies easy bruising. Skin: Denies rash or itching. PMFSH - History History Provided By: Patient - Medical History Medical History: Medical History (Last Reviewed 04/20/18 @ 21:03 by Donna Colon MD) Hypertension - Tobacco History Second Hand Smoke Exposure: No Smoking Status: Never smoker - Alcohol History How Often Do You Have a Drink Containing Alcohol: Never - Substance Use History Substance History: No History of Abuse - Travel History Recent Travel in the [place] Within the Last 8 Weeks: No Recent Travel Out of the Country Within the Last 8 Weeks: No - Immunization History Tetanus Immunization: Unsure Hx Influenza Vaccine This Season: No Medications and Allergies Active Medications: Active Medications Acetaminophen (Tylenol) 500 mg PO Q4H PRN PRN Reason: HEADACHE Last Admin: 04/21/18 08:57 Dose: 500 mg Sodium Chloride (Ns Inj) 1,000 mls @ 100 mls/hr IV.CONT .Q10H [facility] Last Admin: 04/21/18 03:10 Dose: 100 mls/hr Sodium Chloride (Ns Flush) 2 ml IV.FLUSH UNSCH PRN PRN Reason: FLUSH AFTER USING IV ACCESS Sodium Chloride (Ns Flush) 2 ml IV.FLUSH BID [facility] Last Admin: 04/21/18 08:58 Dose: 2 ml Sodium Chloride (Ns Flush) 2 ml IV.FLUSH PRN PRN PRN Reason: FLUSH AFTER USING IV ACCESS Allergies Allergy/AdvReac Type Severity Reaction Status Date / Time No Known Allergies AdvReac Unknown Uncoded 12/10/17 22:29 Home Medications Medication Instructions Recorded Confirmed Type No Known Home Medications 04/21/18 04/21/18 History Exam Vital signs: Vital Signs 04/20/18 20:09 04/20/18 20:40 04/20/18 23:36 Temperature 102.7 F H 99.1 F Pulse Rate 83 Respiratory Rate 16 Blood Pressure 138/79 Pulse Oximetry 98 98 04/21/18 00:52 04/21/18 03:58 04/21/18 05:12 Temperature 98.2 F 98.1 F Pulse Rate 67 69 59 L Respiratory Rate 16 16 18 Blood Pressure 131/71 126/67 107/54 L Pulse Oximetry 98 99 04/21/18 07:53 04/21/18 10:14 Temperature 99.8 F H Pulse Rate 65 88 Respiratory Rate 16 Blood Pressure 134/84 Pulse Oximetry 99 Intake & Output 04/20/18 04/21/18 04/21/18 18:59 06:59 18:59 Weight 85 kg 85 kg Other: Weight On Admission 85 kg Narrative: GENERAL: This is a well-nourished, well-developed patient, in no apparent distress. Patient speaks in clear complete sentences. Patient is pleasant. HEENT: Head is atraumatic and normocephalic. Neck is supple without lymphadenopathy and trachea is midline. No JVD or carotid bruits. CARDIOVASCULAR: Regular rate and rhythm without murmurs, gallops, or rubs. RESPIRATORY: Clear to auscultation. Breath sounds equal bilaterally. No wheezes , rales, or rhonchi. Chest wall is nontender. No use of accessory muscles. GASTROINTESTINAL: Abdomen is nontender, nondistended. Abdomen soft. No obvious pulsatile mass or bruit. No CVA tenderness. Strong femoral pulses bilaterally. Normal bowel sounds in all quadrants. MUSCULOSKELETAL: Patient is moving upper and lower extremities freely. No calf tenderness or edema, no Homans sign. Strong pulses in upper and lower extremities. NEUROLOGICAL: Patient is alert and oriented. Cranial nerves 2-12 are grossly intact. No focal deficits and speech is clear. SKIN: No rash and turgor is normal. Results 04/20/18 20:30 04/20/18 20:30 Cardiac Enzymes 04/20/18 04/20/18 04/21/18 Range/Units 20:30 23:43 03:05 AST 41 H (15-37) U/L CK-MB (CK-2) Less than 1.0 Less than 1.0 (0.5-3.6) ng/mL Troponin I Less than 0.02 L Less than 0.02 L Less than 0.02 L (0.02-0.05) ng/mL Coagulation 04/20/18 Range/Units 20:30 PT 11.2 (9.8-11.6) sec APTT 26.8 (24.3-30.1) sec CBC 04/20/18 Range/Units 20:30 WBC 5.7 (4.0-11.0) th/mm3 RBC 4.68 (4.00-5.30) mil/mm3 Hgb 13.3 (11.6-15.3) gm/dL Hct 38.7 (35.0-46.0) % Plt Count 198 (150-450) th/mm3 Neut # (Auto) 3.2 (1.8-7.7) th/mm3 Lymph # (Auto) 1.8 (1.0-4.8) th/mm3 [place] # (Auto) 0.5 (0.0-0.9) th/mm3 Eos # (Auto) 0.1 (0.0-0.4) th/mm3 Baso # (Auto) 0.0 (0.0-0.2) th/mm3 Comprehensive Metabolic Panel 04/20/18 Range/Units 20:30 Sodium 139 (136-145) meq/L Potassium 3.2 L (3.5-5.1) meq/L Chloride 105 (98-107) meq/L Carbon Dioxide 24.1 (21.0-32.0) meq/L BUN 6 L (7-18) mg/dL Creatinine 0.88 (0.50-1.00) mg/dL Calcium 8.1 L (8.5-10.1) mg/dL AST 41 H (15-37) U/L ALT 66 H (10-53) U/L Alkaline Phosphatase 131 H (45-117) U/L Total Protein 8.2 (6.4-8.2) g/dL Albumin 3.9 (3.4-5.0) g/dL Intake and Output 04/20/18 04/21/18 04/21/18 22:59 06:59 14:59 Other: Weight 85 kg 85 kg Weight On Admission 85 kg Patient Weight 04/22/18 06:59 Weight 85 kg EKG interpretations - EKG EKG shows: sinus rhythm (Initial EKG is sinus rhythm without significant ST segment depressions or elevations.) Caprini VTE Risk Assessment Caprini VTE Risk Assessment: No/Low Risk (score <= 1) Caprini Risk Assessment Model: Point Value = 1 Point Value = 2 Point Value = 3 Point Value = 5 Age 41-60 Minor surgery BMI > 25 kg/m2 Swollen legs Varicose veins or History of unexplained or recurrent spontaneous Oral contraceptives or hormone replacement Sepsis (< 1 month) Serious lung disease, including pneumonia (< 1 month) Abnormal pulmonary function Acute myocardial infarction Congestive heart failure (< 1 month) History of inflammatory bowel disease Medical patient at bed rest Age 61-74 Arthroscopic surgery Major open surgery (> 45 min) Laparoscopic surgery (> 45 min) Malignancy Confined to bed (> 72 hours) Immobilizing plaster cast Central venous access Age >= 75 History of VTE Family history of VTE Factor V Leiden Prothrombin [id number] Lupus anticoagulant Anticardiolipin antibodies Elevated serum homocysteine Heparin-induced thrombocytopenia Other congenital or acquired thrombophilia Stroke (< 1 month) Elective arthroplasty Hip, pelvis, or leg fracture Acute spinal cord injury (< 1 month) Prophylaxis Regimen: Total Risk Factor Score Risk Level Prophylaxis Regimen 0-1 Low Early ambulation 2 Moderate Order ONE of the following: *Sequential Compression Device (SCD) *Heparin 5000 units SQ BID 3-4 Higher Order ONE of the following medications: *Heparin 5000 units SQ TID *Enoxaparin/Lovenox 40 mg SQ daily (WT < 150 kg, CrCl > 30 mL/min) *Enoxaparin/Lovenox 30 mg SQ daily (WT < 150 kg, CrCl > 10-29 mL/min) *Enoxaparin/Lovenox 30 mg SQ BID (WT < 150 kg, CrCl > 30 mL/min) AND/OR *Sequential Compression Device (SCD) 5 or more Highest Order ONE of the following medications: *Heparin 5000 units SQ TID (Preferred with Epidurals) *Enoxaparin/Lovenox 40 mg SQ daily (WT < 150 kg, CrCl > 30 mL/min) *Enoxaparin/Lovenox 30 mg SQ daily (WT < 150 kg, CrCl > 10-29 mL/min) *Enoxaparin/Lovenox 30 mg SQ BID (WT < 150 kg, CrCl > 30 mL/min) AND *Sequential Compression Device (SCD) Assessment and Plan - Assessment (1) Chest pain Code(s): R07.9 - Chest pain, unspecified Status: Acute (2) Febrile Code(s): R50.9 - Fever, unspecified Status: Acute (3) Hypokalemia Code(s): E87.6 - Hypokalemia Status: Acute - Plan * Chest pain: Patient had serial cardiac enzymes and EKGs for ruling out purposes. She was seen by Dr. Muniz of cardiology in the chest pain center. We would like to have obtained a Eric protocol ETT however the patient refused to go on the treadmill. States she does not think she could walk long enough on the treadmill but when asked why she thought that, patient could not provide an answer. But still she refused a treadmill. Subsequently patient is to have a Lexiscan. She will be discharged home her stress test is nonischemic with instructions to follow-up with PCP. Return to ED for interval issues. She will need to follow with PCP to get work clearance. * Febrile: Patient was initially febrile but she has been afebrile since. Unremarkable white count. Chest x-ray is okay. CT of the chest was okay. Urinalysis did not indicate needing culture. Patient need to follow-up with PCP. * Hypokalemia: Patient was given potassium supplementation. Patient is stable at this time. She is agreeable to this plan. H&P: Quality - VTE Deep Vein Thrombosis/Pulmonary Embolism Present on Admission: Yes
[2018-04-21 12:33] VITALS: BP 132/86; PULSE 64; TEMP 99.1; O2SAT 98
--- NOTE | 2018-04-21 16:36 | TR ---
Date Performed: 04/21/2018 Time Performed: 11:00:27 DOCTOR: Mima Muniz DRUG LIST: CLINICAL HISTORY: REASON FOR TEST: REASON FOR ENDING: OBSERVATION: CONCLUSION: Lexiscan stress test was performed under standard four minute protocol. Radionuclid e was injected one minute prior to ending the test. No electrocardiographic abormalities were present to suggest ischemia. Nuclear imaging and interpretation are pending. COMMENTS: No electrocardiographic abormalities were present to suggest ischemia. Nuclear imagin g and interpretation are pending.
--- NOTE | 2018-04-21 16:43 | ECG ---
Date Performed: 04/21/2018 Time Performed: 03:03:21 PTAGE: 37 years EKG: Sinus rhythm NONSPECIFIC T-WAVE ABNORMALITY BORDERLINE ECG Since PREVIOUS TRACING , no significant change noted PREVIOUS TRACIN04/20/2018 23.43 DOCTOR: Mima Muniz Interpretating Date/Time 04/21/2018 16:40:47
--- NOTE | 2018-04-21 20:33 | ECG ---
Date Performed: 04/20/2018 Time Performed: 23:43:44 PTAGE: 37 years EKG: Sinus rhythm NONSPECIFIC T-WAVE ABNORMALITY BORDERLINE ECG Since PREVIOUS TRACING , no significant change noted PREVIOUS TRACIN04/20/2018 20.00 DOCTOR: Mima Muniz Interpretating Date/Time 04/21/2018 20:31:18
--- NOTE | 2018-04-21 20:34 | ECG ---
Date Performed: 04/20/2018 Time Performed: 20:00:02 PTAGE: 37 years EKG: Sinus rhythm MINIMAL VOLTAGE CRITERIA FOR LVH, CONSIDER NORMAL VARIANT NONSPECIFIC T-WAVE ABNORMALITY BORDERLINE ECG Since PREVIOUS TRACING , no significant change noted PREVIOUS TRACIN12/30/2016 11.02 DOCTOR: Mima Muniz Interpretating Date/Time 04/21/2018 20:33:36
== END 2018-04-21 14:23 | disposition home or self-care (01) ==
LOC: NEDA 19:37 → NEPC 19:37 → NEDH 04-21 04:33 → NEPHCDU 04-21 07:43
PROVIDERS: ADMIT Internal Medicine Cardiovascular Disease; ATTEND Internal Medicine Cardiovascular Disease